=== PATIENT | male | born 1985 | race Caucasian/White ===

== ENCOUNTER 2021-04-03 08:20 | Emergency (ER) | payer OTHER ==
[~2021-04-03 08:20] MED LIST: IBUPROFEN600 MG PO
[2021-04-03] MEDS ORDERED: NAPROSYN500 MG PO (09:32)
[2021-04-03] MEDS ORDERED: CYCLOBENZAPRINE10 MG PO (09:32)
== END 2021-04-03 09:44 | disposition home or self-care (01) ==
LOC: ER1 08:20
DX: S16.1XXA Strain of muscle, fascia and tendon at neck level, initial encounter (principal); Z88.0 Allergy status to penicillin; V49.9XXA Car occupant (driver) (passenger) injured in unspecified traffic accident, initial encounter
CPT/HCPCS: 72125; 96372; 99283; J1885